=== PATIENT | male | born 1960 | race Caucasian/White ===

== ENCOUNTER 2017-10-15 21:16 | Emergency (ER) | payer OTHER ==
--- NOTE | 2017-10-15 22:36 | ER Document Report ---
ED Eye Complaint - General Chief Complaint: Eye Problem Stated Complaint: EYE PROBLEM Time Seen by Provider: 10/15/17 22:27 - Related Data Allergies/Adverse Reactions: Penicillins Allergy (Verified 10/15/17 22:24) Past Medical History - Social History Smoking Status: Never Smoker Chew tobacco use (# tins/day): No Frequency of alcohol use: None Drug Abuse: None Patient has suicidal ideation: No Patient has homicidal ideation: No Renal/ Medical History: Denies: Hx Peritoneal Dialysis Physical Exam - Vital signs Vitals: Temp Pulse Resp BP Pulse Ox 97.3 F 91 18 142/89 H 95 10/15/17 21:21 10/15/17 21:21 10/15/17 21:21 10/15/17 21:21 10/15/17 21:21 Course - Vital Signs Vital signs: Temp Pulse Resp BP Pulse Ox 97.3 F 91 18 142/89 H 95 10/15/17 21:21 10/15/17 21:21 10/15/17 21:21 10/15/17 21:21 10/15/17 21:21 Discharge - Discharge Referrals: BRANDIN MAHAN MD [Primary Care Provider] - Follow up as needed
[2017-10-15] MEDS ORDERED: HOMATROPINE HBR 5% OPH SOLN 5 ML OD ONE (22:54)
--- NOTE | 2017-10-15 22:58 | ER Document Report ---
ED Eye Complaint - General Mode of Arrival: Ambulatory Information source: Patient <ANDREIA VINES - Last Filed: 10/16/17 00:00> <MIKA HARE - Last Filed: 10/16/17 00:08> - General Chief Complaint: Eye Problem Stated Complaint: EYE PROBLEM Time Seen by Provider: 10/15/17 22:27 Notes: This 57-year-old male patient comes emergency room reporting visual problems in the right eye. He reports about 1130 today while he was reading his Bible he noted "floaties" in the right eye. These did not last very long. About 8 PM this evening, he noted when he walked outdoors into the darkness, he saw a "arc of light" in his lateral visual field. He noted this arc of light would occur whenever he would move his eyes right to left, left to right, or up and down. When he stopped the movement, the light he was seeing with stop. He also noted an increase in the dark colored floaties he had reported earlier. When specifically asked about his vision, he said the right might be a little blurry, but he wears glasses with bifocals. He may have had a little difficulty with blurriness in the right eye when he was at home this evening trying to read. (MIKA HARE) - Related Data Allergies/Adverse Reactions: Penicillins Allergy (Verified 10/15/17 22:24) Past Medical History - General Information source: Patient - Social History Smoking Status: Never Smoker Cigarette use (# per day): No Chew tobacco use (# tins/day): No Frequency of alcohol use: None Drug Abuse: None Occupation: Preacher Lives with: Family Family History: Reviewed & Not Pertinent Patient has suicidal ideation: No Patient has homicidal ideation: No Renal/ Medical History: Reports: Hx Benign Prostatic Hyperplasia Surgical Hx: Negative <CHAS VINESON - Last Filed: 10/16/17 00:00> Review of Systems - Review of Systems Constitutional: No symptoms reported EENT: See HPI, Other - right eye complaint, see hpi Cardiovascular: No symptoms reported Respiratory: No symptoms reported Gastrointestinal: No symptoms reported Genitourinary: No symptoms reported Male Genitourinary: No symptoms reported Musculoskeletal: No symptoms reported Skin: No symptoms reported Hematologic/Lymphatic: No symptoms reported Neurological/Psychological: No symptoms reported -: Yes All other systems reviewed and negative <ANDREIA VINES - Last Filed: 10/16/17 00:00> Physical Exam <ANDREIA VINES - Last Filed: 10/16/17 00:00> - HEENT Conjunctiva: Normal Extraocular movements intact: Yes Pupils: PERRL Anterior chamber: Normal Fundascopic: Other - The right retinal exam does not show any definite retinal detachment. There is a transverse jagged linear darkness the width of a retinal vessel noted in the medial mid retina. <MIKA HARE - Last Filed: 10/16/17 00:08> - Vital signs Vitals: Temp Pulse Resp BP Pulse Ox 97.3 F 91 18 142/89 H 95 10/15/17 21:21 10/15/17 21:21 10/15/17 21:21 10/15/17 21:21 10/15/17 21:21 - Notes Notes: Physical Exam: General: Alert, appears well. HEENT: Normocephalic. Atraumatic. PERRL. Extraocular movements intact. Oropharynx clear. No carotid bruits. Neck: Supple. Non-tender. Respiratory: No respiratory distress. Clear and equal breath sounds bilaterally. No murmurs. Cardiovascular: Regular rate and rhythm. Abdominal: Normal Inspection. Non-tender. No distension. Normal Bowel Sounds. Back: Non-tender. No deformity or step off. Extremities: Moves all four extremities. Upper extremities: Normal inspection. Normal ROM. Lower extremities: Normal inspection. No edema. Normal ROM. Neurological: Normal cognition. AAOx4. Normal speech. Psychological: Normal affect. Normal Mood. Skin: Warm. Dry. Normal color. (MOHINDERANDREIA) Course <MOHINDERANDREIA - Last Filed: 10/16/17 00:00> <MIKA HARE - Last Filed: 10/16/17 00:08> - Re-evaluation Re-evalutation: 10/16/17 00:06 The patient's signs and symptoms were discussed with the junior estimator on- call at [facility]. The fact that the light flashes the patient experienced only occur when he is in the dark and repeatedly occur when he looks about, does not suggest a retinal detachment. He recommended that the patient be seen in the morning either in his office, or by an eye doctor here locally. The patient prefers to see his lease analyst here first thing in the morning. ( MIKA HARE) - Vital Signs Vital signs: Temp Pulse Resp BP Pulse Ox 97.3 F 91 18 142/89 H 95 10/15/17 21:21 10/15/17 21:21 10/15/17 21:21 10/15/17 21:21 10/15/17 21:21 Discharge <ANDREIA VINES - Last Filed: 10/16/17 00:00> <MIKA HARE - Last Filed: 10/16/17 00:08> - Discharge Clinical Impression: Vitreous detachment of right eye Condition: Stable Disposition: HOME, SELF-CARE Additional Instructions: Vitreous detachment: Your symptoms or exam suggest vitreous detachment. You should rest. Don't lift or strain. Don't run or do sports. If you develop a twinkling or "blank area" approaching the center of your vision, you need urgent intervention for a possible retinal detachment. Return here or see the specialist immediately. Follow-up with your lease analyst first thing in the morning for review of your symptoms evaluation of your retina, to see if you need to be seen by a retinal specialist. RETURN TO THE EMERGENCY ROOM IF ANY NEW OR WORSENING SYMPTOMS. Scribe Attestation: 10/16/17 00:07 I personally performed the services described in the documentation, reviewed and edited the documentation which was dictated to the scribe in my presence, and it accurately records my words and actions. (MIKA HARE)
[2017-10-16 00:27] VITALS: BP 122/82
== END 2017-10-16 00:27 | disposition home or self-care (01) ==
LOC: ER 21:16
DX: H43.89 Other disorders of vitreous body (principal); H53.9 Unspecified visual disturbance
CPT/HCPCS: 99283; J3490